=== PATIENT | female | born 1970 | race Caucasian/White ===

== ENCOUNTER 2018-08-01 19:31 | Inpatient (IN) | payer OTHER ==
[~2018-08-01] VITALS: Ht 162.6 cm; Wt 60.3 kg
[2018-08-01] MEDS ORDERED: SYNTHROID75 MCG (20:00)
[2018-08-04] MEDS ORDERED: ZANTAC150 MG PO (14:50)
[2018-08-04] MEDS ORDERED: FLAGYL500MG PO (14:50)
[2018-08-04] MEDS ORDERED: CIPRO500 MG PO (14:50)
[2018-08-04] MEDS ORDERED: ULTRACET PO (14:50)
== END 2018-08-04 15:15 | disposition home or self-care (01) | DRG 392 ==
LOC: ER 19:31 → MEDI 08-02 12:01
DX: K57.20 Diverticulitis of large intestine with perforation and abscess without bleeding (principal); K59.09 Other constipation; E86.0 Dehydration; E03.9 Hypothyroidism, unspecified

== ENCOUNTER → 2018-11-03 | Day surgery (SDC) | payer OTHER ==
[~2018-11-03] MED LIST: CIPRO500 MG PO; FLAGYL500MG PO; SYNTHROID75 MCG; ULTRACET PO; ZANTAC150 MG PO
== END | disposition home or self-care (01) ==
LOC: ADM 10-29 14:00 → AMB-ENDOS 07:17
DX: K57.32 Diverticulitis of large intestine without perforation or abscess without bleeding (principal)

== ENCOUNTER 2022-01-03 22:06 | Emergency (ER) | payer OTHER ==
[~2022-01-03] VITALS: Ht 162.6 cm; Wt 61.2 kg
[2022-01-04] MEDS ORDERED: LEVSIN/SL0.125 MG SL (02:46)
== END 2022-01-04 02:53 | disposition home or self-care (01) ==
LOC: ER 22:06
DX: K57.92 Diverticulitis of intestine, part unspecified, without perforation or abscess without bleeding (principal)